=== PATIENT | male | born 1970 | race Two or more races ===

== ENCOUNTER → 2024-10-02 | Outpatient (CLI) | payer BC, SELFPAY ==
[2024-10-02 16:37] LABS: Glucose Estimated Average 249 mg/dL (80-131); Hemoglobin A1C 10.3 % Hgb (4.8-6.0)
[2024-10-03 13:20] LABS: Cocci Serology, IgM Negative (Negative)
[2024-10-04 13:10] LABS: Cocci Serology, IgG Negative (Negative)
[2024-10-10 06:50] LABS: Testosterone, Free,Dialysis 52.9 pg/mL (35.0-155.0); Testosterone, Total, Dialysis 273 ng/dL (250-1100)
== END | disposition home or self-care (01) ==
LOC: COPL 13:40
PROVIDERS: PCP Family Medicine; Referring Provider Family Medicine; Visit Provider Family Medicine
DX: R73.9 Hyperglycemia, unspecified (principal); R68.82 Decreased libido; B38.9 Coccidioidomycosis, unspecified
CPT/HCPCS: 36415; 83036; 84402; 84403; 86331; 86635

== ENCOUNTER → 2024-11-21 | Outpatient (CLI) | payer BC, SELFPAY ==
--- NOTE | 2024-11-21 13:30 | XR_ITS ---
Examination: Thyroid sonography complete Technique: Grayscale sonographic images thyroid lobes with color flow analysis Exam date and time: November 21, 2024 1552 hrs. Indications: Throat pain beginning one week ago Findings: Right thyroid 4.4 cm no thyroid nodules Left thyroid 4.7 cm no thyroid nodules Impression: Negative study
== END | disposition home or self-care (01) ==
PROVIDERS: PCP Physician Assistant; Referring Provider Physician Assistant; Visit Provider Physician Assistant
DX: R07.0 Pain in throat (principal)
CPT/HCPCS: 76536

== ENCOUNTER → 2024-12-13 | Outpatient (CLI) | payer BC, SELFPAY ==
--- NOTE | 2024-12-13 09:21 | XR_ITS ---
EXAMINATION: Ankle, left 3 views . Technique: Ankle AP, oblique, lateral 3 views Date and time of exam: December 13, 2024 0926 hours INDICATIONS: Twisting injury to the ankle yesterday with ankle pain. FINDINGS: No fracture or dislocation 8mm plantar bony calcaneal spur IMPRESSION: No fracture or dislocation
== END | disposition home or self-care (01) ==
PROVIDERS: PCP Family Medicine; Referring Provider Physician Assistant; Visit Provider Physician Assistant
DX: M25.572 Pain in left ankle and joints of left foot (principal); S93.422S Sprain of deltoid ligament of left ankle, sequela; X50.1XXS Overexertion from prolonged static or awkward postures, sequela
CPT/HCPCS: 73610

== ENCOUNTER → 2025-01-31 | Outpatient (CLI) | payer BC, SELFPAY ==
--- NOTE | 2025-01-31 09:30 | XR_ITS ---
Examination: Abdomen sonogram, complete Date and time of exam: January 31, 2025 0953 hours INDICATIONS: History 3 mm gallbladder polyp, history splenomegaly hepatomegaly on ultrasound July 16, 2021, history epigastric pain. Technique: Multiple real-time grayscale transabdominal sonographic images of the abdomen have been obtained. Findings: Gallstones 5 mm gallbladder polyp Normal gallbladder wall Normal common bile duct 0.3 cm Pancreatic head 2.8 cm Aorta not enlarged Liver 16.8 cm fatty infiltration Normal hepatopedal portal venous flow Patent IVC Right kidney 11.3 cm cortex 1.9 cm Left kidney 12.3 cm cortex 1.7 cm No renal calculi Spleen 11.3 cm IMPRESSION: Cholelithiasis, negative for cholecystitis Mild hepatomegaly fatty infiltration
== END | disposition home or self-care (01) ==
LOC: CDIM 09:36
PROVIDERS: PCP Family Medicine; Referring Provider Physician Assistant; Visit Provider Physician Assistant
DX: K80.20 Calculus of gallbladder without cholecystitis without obstruction (principal); K76.0 Fatty (change of) liver, not elsewhere classified
CPT/HCPCS: 76700

== ENCOUNTER → 2025-02-20 | Outpatient (CLI) | payer BC, SELFPAY ==
[2025-02-20 17:48] LABS: Prostate Specific Antigen 1.44 ng/mL (0-4.00)
== END | disposition home or self-care (01) ==
PROVIDERS: PCP Physician Assistant; Referring Provider Physician Assistant; Visit Provider Physician Assistant
DX: E29.1 Testicular hypofunction (principal)
CPT/HCPCS: 36415; 84153

== ENCOUNTER → 2025-02-26 | Outpatient (CLI) | payer BC, SELFPAY ==
[2025-02-26 11:36] LABS: Post Vasectomy Sperm Presence No Spermatozoa Seen (No Sperm)
== END | disposition home or self-care (01) ==
LOC: SLDO 10:59
PROVIDERS: Referring Provider Urology; Visit Provider Urology
DX: Z30.09 Encounter for other general counseling and advice on contraception (principal)
CPT/HCPCS: 89321

== ENCOUNTER → 2025-02-28 | Outpatient (CLI) | payer BC, SELFPAY ==
--- NOTE | 2025-02-28 14:30 | XR_ITS ---
Examination: Prostate sonography TECHNIQUE: Grayscale sonographic images prostate Date and time: February 28, 2025 1431 hours INDICATIONS: Testicular hypofunction FINDINGS: Prostate 4.2 x 4.4 x 4.4 cm volume 43.07 cm heterogeneous echogenicity no prostate nodules No bladder mass or bladder calculi IMPRESSION: Prostate volume 43 cc no prostate nodules
== END | disposition home or self-care (01) ==
PROVIDERS: PCP Family Medicine; Referring Provider Physician Assistant; Visit Provider Physician Assistant
DX: E29.1 Testicular hypofunction (principal)
CPT/HCPCS: 76873

== ENCOUNTER 2025-03-04 05:55 | Day surgery (SDC) | payer BC, SELFPAY ==
--- NOTE | 2025-02-28 10:40 | EKG_ITS ---
[facility] Test Date: 2025-02-28 Pat Name: DARRELL GARCIA Department: Room: - Gender: Male [employer]: RACIEL : 1970 Requested By: Marcos Botello Order Number: [id number] Reading MD: Marcos Botello Measurements Intervals [place] Rate: 63 P: 6 WI: 187 QRS: 69 QRSD: 89 T: 55 QT: 382 QTc: 393 Interpretive Statements SINUS RHYTHM EARLY REPOLARIZATION [ST ELEVATION WITH NORMALLY INFLECTED T WAVE] Compared to ECG 03/02/2023 14:33:21 Early repolarization now present Sinus bradycardia no longer present /store/[id number].pdf
[2025-02-28 10:55] VITALS: BMI 33.7
[2025-02-28 12:00] LABS: Basophils # (Auto) 0.0 Thou/mm3 (0.0-0.2); Basophils % (Auto) 0 % (0-2.5); Eosinophils # (Auto) 0.1 Thou/mm3 (0.0-0.5); Eosinophils % (Auto) 2 % (0-10); Hematocrit 44.8 % (41.0-53.0); Hemoglobin 15.1 g/dL (13.5-16.0); Immature Granulocytes Auto 0.01 Thou/mm3 (0.00-0.00); Lymphocytes # (Auto) 2.1 Thou/mm3 (1.0-4.8); Lymphocytes % (Auto) 36 % (10-50); Mean Corpuscular HGB Conc 33.7 g/dl (31.0-37.0); Mean Corpuscular Hemoglobin 28.3 pg (25.0-35.0); Mean Corpuscular Volume 84 fL (80-100); Monocytes # (Auto) 0.5 Thou/mm3 (0.0-0.8); Monocytes % (Auto) 9 % (0-12); Neutrophils # (Auto) 3.1 Thou/mm3 (1.8-7.7); Neutrophils % (Auto) 53 % (37-80); Nucleated Red Blood Cell # 0.00 Thou/mm3 (0.00-0.00); Nucleated Red Blood Cell % 0 /100 WBC (0); Platelet Count 219 Thou/mm3 (140-440); RDW Standard Deviation 44.3 fL (35.1-43.9); Red Blood Count 5.33 Miln/mm3 (4.50-5.90); White Blood Count 5.9 Thou/mm3 (3.8-10.6)
[2025-02-28 12:23] LABS: INR 1.0 (0.9-1.3); Partial Thromboplastin Time 27.6 Seconds (22.0-36.0); Prothrombin Time 11.4 Seconds (9.0-12.2)
[2025-02-28 12:36] LABS: Alanine Aminotransferase 52 U/L (10-49); Albumin, Serum 4.5 gm/dL (3.5-5.0); Albumin/Globulin Ratio 1.6 (1.2-2.2); Alkaline Phosphatase 87 U/L (46-116); Anion Gap 13 (7-16); Aspartate Amino Transferase 30 U/L (0-34); BUN/Creatinine Ratio 13 Ratio (12-20); Bilirubin,Total 1.1 mg/dL (0.3-1.2); Blood Urea Nitrogen 13 mg/dL (9-23); Calcium 9.1 mg/dL (8.3-10.6); Calcium (Corrected) 9.1 mg/dL (8.5-10.1); Carbon Dioxide 26.9 mMol/L (20.0-31.0); Chloride 105 mMol/L (98-107); Creatinine (Component) 1.0 mg/dL (0.6-1.3); Estimated Creatinine Clearance 100.2 mL/min (>60); Globulin 2.9 gm/dL (2.3-3.5); Glucose 138 mg/dL (74-106); Osmolality,Calculated 290 (275-295); Potassium 4.5 mMol/L (3.4-5.1); Sodium 145 mMol/L (136-145); Total Protein 7.4 gm/dL (5.7-8.2); eGFR > 60 See Note
--- NOTE | 2025-03-03 15:23 | SUR.PREOP ---
Pt notified to come in tomorrow at 0600 for surgery.
[2025-03-04] VITALS (10 sets, daily range): BP systolic 114–126; BP diastolic 71–82; PULSE 60–69; RESP 13–23; TEMP 36.6–37; O2SAT 95–99; BMI 33.3
[2025-03-04] MEDS: RINGERS LACTATED 1000 ML 1,000 ML 20 ML IV (07:00)
--- NOTE | 2025-03-04 09:53 | SUR.PHASEI ---
0940: Pt received in [facility] via gurney. Report from Jesse PERAZA and Dr. Pruett. Oral airway in place. Resp even, unlabored. VS stable. Surgical sites x4 to abdomen. Dressings dry, clean, intact. 0947: Pt arousable with eye opening. Oral airway dc'd. Resp even, unlabored. No c/o pain.
--- NOTE | 2025-03-04 09:54 | PD.SUROPNT ---
Date of Procedure 03/04/25 Pre Op Diagnosis Symptomatic cholelithiasis Post Op Diagnosis Same Procedure Laparoscopic cholecystectomy Findings Patient had a small umbilical hernia which was also treated at the same time. He had 2 gallstones on the gallbladder Procedure Description After endotracheal anesthesia was given the patient was placed in supine position and the abdomen was prepped with chloroprep solution and draped in a sterile manner. After time out was performed I injected a few cc of of half percent Marcaine with epinephrine below the umbilicus and I made a curved semilunar incision for about 3 cm in length below the umbilicus. I dissected out the umbilical hernia and introduced Veress needle to create a pneumoperitoneum up to 15 mmHg. Then introduced a 12 mm trocar and a 10 mm camera through the fascia and I inspected the intra-abdominal organs as well as the gallbladder and the liver. Another 5 mm trocar was inserted in the epigastric region under direct vision after injecting some local anesthesia. At this time the patient was kept in reverse Trendelenburg position with the left lateral tilt. The third 5 mm trocar was inserted over the mid axillary line under direct vision and a Phuc and Yarelis grasper was used to hold the fundus of the gallbladder. The retraction was carried out by the dermatology physician assistant moving the fundus of the gallbladder towards the right shoulder of the patient to create enough traction. I placed a another 5 mm trocar in the midaxillary line just lateral to the rectus muscle under direct vision. I used a fenestrated grasper to retract the neck of the gallbladder laterally towards the patient's right hip. The Calot's triangle was exposed and I achieved the critical view of safety as follows: I dissected out the fatty tissue from the hepatocystic triangle and cleared this area. I also dissected inferior and posterior to the gallbladder to identify the cystic duct and the gallbladder wall. Then superiorly I dissected along the cystic plate up to lower one third third of the gallbladder to lift the gallbladder from the liver. At this time I confirmed that only 2 structures entering the gallbladder were cystic artery and the cystic duct. The common duct was seen distally but no dissection was carried out around the duct. I did not see any need for operative cholangiogram in this patient. The cystic duct was clipped doubly and then divided and cystic artery was similarly dealt with. Then the gallbladder was removed from the liver bed using Harmonic tita to control the small blood vessels as the dissection proceeded. Then the gallbladder was from the liver bed completely and delivered through the umbilical port using an Endopouch. The liver bed was coagulated with cautery to obtain satisfactory hemostasis. The trocars were pulled out from the abdominal cavity and the fascia at the umbilical incision was closed with interrupted 0 Ethibond. This essentially closed the umbilical hernia. Subcutaneous tissues was closed with 3-0 chromic and injected a few cc of half percent Marcaine with epinephrine and the skin was closed with interrupted 4-0 nylon stitches at all the trocar sites. Dressing was applied with 2 x 2 and Tegaderm. Patient tolerated the procedure well and returned to recovery room in stable condition. Anesthesia GETA Pathology / specimen Other (Gallbladder and the stones) Estimated Blood Loss 20 Surgeon Ronda Cummings MD Surgical Staff Operation Date: 03/04/25 08:15 Case Staff Anesthesiologist: Kaden John RN First Assistant: Emily Kahn
--- NOTE | 2025-03-04 10:14 | SUR.PHASEI ---
1005: Pt resting with no complaints voiced. Resp even, unlabored. VS stable. Dressing remain dry, clean, intact. Pt states he has some tenderness with movement. Pain level very tolerable.
--- NOTE | 2025-03-04 10:41 | SUR.PHASEII ---
1030: Pt more awake, alert. Resp even, unlabored. Dressings remain dry, clean, intact. States he only has some discomfort with movement. Sitting up tolerating po fluids with no difficulty swallowing and no n/v.
[2025-03-04] MEDS: ONDANSETRON INJ 2 MG/ML INJ 2 ML 4 MG IVP (10:51)
--- NOTE | 2025-03-04 11:22 | SUR.PHASEII ---
1051: Pt had c/o nausea. Zofran given per order. 1103: Pt states nausea has subsided and he feels much better. VS stable. States he has very little pain with movement. Pt dressed. Assisted to transport chair. Ambulation steady. Pt and stated understanding of discharge instructions. Pt discharged from [facility] in stable condition.
== END 2025-03-04 11:03 | disposition home or self-care (01) ==
PROVIDERS: PCP Family Medicine; Referring Provider Surgery; Visit Provider Surgery
PROC: 0FT44ZZ Resection of Gallbladder, Percutaneous Endoscopic Approach (ICD-10-PCS; CPT 47562; principal; 2025-03-04 08:00)
DX: K80.20 Calculus of gallbladder without cholecystitis without obstruction (principal); K42.9 Umbilical hernia without obstruction or gangrene; Z01.810 Encounter for preprocedural cardiovascular examination
CPT/HCPCS: 47562; 36415; 80053; 85025; 85610; 85730; 93005; A4217; A4649; J0131; J1100; J1885; J2250; J2405; J2704; J3010; J3490; J7120; A9270

== ENCOUNTER → 2025-04-17 | Outpatient (CLI) | payer BC, SELFPAY ==
[2025-04-17 15:53] LABS: Glucose Estimated Average 151 mg/dL (80-131); Hemoglobin A1C 6.9 % Hgb (4.8-6.0)
== END | disposition home or self-care (01) ==
LOC: COPL 14:47
PROVIDERS: PCP Family Medicine; Referring Provider Family Medicine; Visit Provider Family Medicine
DX: E11.65 Type 2 diabetes mellitus with hyperglycemia (principal)
CPT/HCPCS: 36415; 83036